=== PATIENT | female | born 1995 | race Caucasian/White ===

== ENCOUNTER 2024-09-09 08:33 | Emergency (ER) | payer OTHER, SELFPAY ==
[2024-09-09 09:13] VITALS: BP 111/69; PULSE 77; RESP 16; TEMP 36.5; O2SAT 98; BMI 29.9
--- NOTE | 2024-09-09 11:53 | ED_ITS ---
HPI - Dental/Oral General Chief complaint: Dental/Oral Stated complaint: TMJ flare up Time Seen by Provider: 09/09/24 11:52 Source: patient Mode of arrival: Ambulatory History of Present Illness HPI Narrative: 29-year-old female with past medical history TMJ presents to the ED with an acute flare-up of jaw pain. Patient states that she has had this acute flare-up for the last 3 days due to stress. States the symptoms are similar to prior flare-ups. Patient states that she has been treated by her PCP in the past with muscle relaxants and antispasmodics. She can not recollect the names of these medications. Patient states she is taken some ibuprofen with little relief. Patient has very little jaw opening in his unable to eat very much due to that. Denies chest pain, shortness of breath, dental pain. Is handling secretions well. No fever, chills. Related Data Previous Rx's ?Medication ?Instructions ?Recorded cyclobenzaprine 10 mg tablet 10 mg PO TID PRN muscle s pasm #30 09/09/24 tabs Allergies Allergy/AdvReac Type Severity Reaction Status Date / Time Penicillins (PENICILLINS) Allergy Severe RASH Unverified 09/09/24 09:13 pineapple (PINEAPPLE) Allergy Severe ANAPHYLAXIS Unverified 09/09/24 09:13 Review of Systems Constitutional Constitutional: Denies chills, Denies fatigue, Denies fever(s), Denies frequent falls, Denies lethargy and Denies weakness Eyes Eyes: Denies change in vision, Denies eye discharge, Denies irritation and Denies loss of vision ENT Ears, Nose, Mouth, and Throat: Denies change in voice, Denies dizziness, Denies neck pain, Denies sore throat and Denies throat swelling Comments: Jaw pain, limited mouth opening Cardiovascular Cardiovascular: Denies chest pain, Denies irregular heart rhythm, Denies lightheadedness, Denies palpitations, Denies dyspnea, Denies dyspnea on exertion and Denies orthopnea Respiratory Respiratory: Denies cough, Denies dyspnea, Denies dyspnea on exertion and Denies wheezing Gastrointestinal Gastrointestinal: Denies abdominal pain, Denies change in bowel habits, Denies diarrhea, Denies nausea and Denies vomiting Musculoskeletal Musculoskeletal: Denies neck pain and Denies numbness Integumentary/Breasts Skin/Breast: Denies pruritus, Denies erythema, Denies rash and Denies wounds Neurologic Neurologic: Denies behavioral changes, Denies confusion, Denies dizziness, Denies frequent falls, Denies loss of vision, Denies numbness and Denies weakness Psychiatric Psychiatric: Denies anxiety, Denies behavioral changes, Denies confusion, Denies depression, Denies homicidal ideation and Denies suicidal ideation Endocrine Endocrine: Denies fatigue, Denies flushing and Denies palpitations Hematologic/Lymphatic Hematologic/Lymphatic: Denies easy bruising Allergic/Immunologic Allergic/Immunologic: Denies urticaria, Denies throat swelling and Denies wheezing Patient History tobacco type: vaping Exam Narrative Exam Narrative: Const General:?cooperative, healthy appearing and comfortable [facility] Head:?normal to inspection Ears:?hearing grossly normal bilaterally Nose:?external nose normal Face and sinus:?normal facial exam and sinuses nontender; no jaw tenderness Mouth:? Very Limited jaw opening due to pain; airway patent Throat:?posterior oropharynx normal Eyes General:?appearance normal, both eyes and all related structures Neck Neck:?normal visual inspection and no lymphadenopathy noted Resp Effort & Inspection:?normal respiratory effort Auscultation:?clear to auscultation bilaterally Cardio Rate:?regular rate Rhythm:?regular rhythm Neuro General:?patient alert, patient awake and patient oriented x3 Initial Vital Signs Initial Vital Signs: Vital Signs Temperature 97.7 F 09/09/24 09:13 Pulse Rate 77 09/09/24 09:13 Respiratory Rate 16 09/09/24 09:13 Blood Pressure 111/69 09/09/24 09:13 Pulse Oximetry 98 09/09/24 09:13 Oxygen Delivery Method Room Air 09/09/24 09:13 Course Orders Ordered: Discontinued Medications Cyclobenzaprine HCl (Cyclobenzaprine 10 Mg Tablet) 10 mg PO NOW ONE Stop: 09/09/24 12:14 Last Admin: 09/09/24 12:21 Dose: 10 mg Documented By: LING Ketorolac Tromethamine (Ketorolac 30 Mg/Ml Vial) 30 mg IM NOW ONE Stop: 09/09/24 12:14 Last Admin: 09/09/24 12:21 Dose: 30 mg Documented By: LING Vital Signs Vital signs: Vital Signs - 8 hr 09/09/24 13:54 Pulse Rate 77 Respiratory Rate 16 Blood Pressure 134/83 Pulse Oximetry 100 Oxygen Delivery Method Room Air MDM - Dental/Oral MDM Narrative Medical decision making narrative: 29-year-old female with past medical history TMJ presents to the ED with an acute flare-up of jaw pain. Will treat in the ED with ketorolac, Flexeril. Will reassess. Patient experienced significant improvement in jaw opening and pain with the medications. Prescribed Flexeril and recommend taking along with ibuprofen. Recommend follow-up with PCP/dentist as soon as possible. ED return precautions discussed with patient. Patient verbalized understanding. Medical records reviewed: Yes Discharge Plan Departure Patient Disposition: Home Clinical Impression: TMJ (temporomandibular joint syndrome) Instructions: DI for Temporomandibular Disorder Activity Restrictions/Additional Instructions: You were evaluated in the ED today for jaw pain. You were treated with ketorolac and Flexeril with good relief. You are being prescribed Flexeril to continue taking at home for the TMJ. You may also take 800 mg of ibuprofen every 8 hours with food. Please follow-up with your PCP or dentist for further evaluation. Return to the ED if you have worsening symptoms, trouble breathing. Prescriptions: New cyclobenzaprine 10 mg tablet 10 mg PO TID PRN (Reason: muscle spasm) Qty: 30 0RF Stand Alone Forms: Patient Portal/API
[2024-09-09] MEDS: CYCLOBENZAPRINE 10 MG TABLET PO (12:21)
[2024-09-09] MEDS: KETOROLAC 30 MG/ML VIAL IM (12:21)
[2024-09-09 13:54] VITALS: BP 134/83; PULSE 77; RESP 16; O2SAT 100
== END 2024-09-09 13:55 | disposition home or self-care (01) ==
PROVIDERS: Emergency Provider Student in an Organized Health Care Education/Training Program
DX: M26.609 Unspecified temporomandibular joint disorder, unspecified side (principal)
CPT/HCPCS: 96372; 99283; J1885